=== PATIENT | female | born 1980 | race Caucasian/White ===

== ENCOUNTER → 2017-01-17 | Outpatient (CLI) | payer BC ==
[~2017-01-17] MED LIST: PREN1TAB29
[2017-01-17 11:37] LABS: URINE APPEARANCE CLEAR (CLEAR); URINE BILIRUBIN NEG (NEG); URINE COLOR YELLOW; URINE NITRITE NEG (NEG); URINE SPECIFIC GRAVITY 1.017 (1.000-1.030); UROBILINOGEN NEG (NEG)
[2017-01-17 11:42] LABS: MANUAL MICROSCOPIC REQUIRED? NO; REVIEW REQ? NO
== END | disposition home or self-care (01) ==
LOC: C.LABSPEC 11:05
PROVIDERS: ATTEND Obstetrics & Gynecology
DX: O09.521 Supervision of elderly multigravida, first trimester (principal); Z3A.00 Weeks of gestation of pregnancy not specified

== ENCOUNTER → 2017-01-26 | Outpatient (CLI) | payer BC ==
[2017-01-26 10:31] LABS: BASO % 0.2 %; BASO ABS # 0.02 K/uL (0-0.2); COMPLETE YES; EOS % 0.5 %; HEMATOCRIT 38.5 % (37-47); IG% 0.2 %; LYMPH % 20.7 %; MEAN CELL VOLUME 89.1 fL (80-100); MEAN CORPUSCULAR HEMOGLOBIN 30.8 pg (25-34); MEAN CORPUSCULAR HGB CONC 34.5 g/dl (32-36); MEAN PLATELET VOLUME 9.2 fL (7.4-10.4); MONO % 6.5 %; NEUT % 71.9 %; PLATELET COUNT 288 K/uL (130-400); RED BLOOD COUNT 4.32 M/uL (4.2-5.4); WHITE BLOOD COUNT 9.19 K/uL (4.8-10.8)
[2017-01-30 00:44] LABS: CHLAMYDIA TRACH RNA*** NOT DETECTED (NOT DETECTED); GC (NEIS GONORRHOEAE)RNA** NOT DETECTED (NOT DETECTED)
== END | disposition home or self-care (01) ==
LOC: C.LAB1850 09:08
PROVIDERS: ATTEND Obstetrics & Gynecology
DX: O09.521 Supervision of elderly multigravida, first trimester (principal); Z3A.00 Weeks of gestation of pregnancy not specified

== ENCOUNTER → 2017-01-26 | Outpatient (CLI) | payer BC | END | disposition home or self-care (01) | LOC: C.PAPS 11:26 | PROVIDERS: ATTEND Obstetrics & Gynecology | DX: Z34.90 Encounter for supervision of normal pregnancy, unspecified, unspecified trimester (principal); R87.612 Low grade squamous intraepithelial lesion on cytologic smear of cervix (LGSIL); Z11.51 Encounter for screening for human papillomavirus (HPV); Z3A.00 Weeks of gestation of pregnancy not specified ==

== ENCOUNTER → 2017-03-20 | Outpatient (CLI) | payer BC ==
[2017-03-20 10:43] LABS: GTGD 50 Grams
[2017-03-21 15:22] LABS: AFP CONCENTRATION 45.9 NG/ML; AFP MULTIPLE OF MEDIAN 1.07; AFPTS GESTATIONAL AGE 17.6 WEEKS; AFPTS INSULIN DEP DIABETIC? NO; AFPTS MATERNAL WT 136 LBS; ALPHA-FETOPROTEIN RACE CAUCASIAN=W; CIGARETTE SMOKER? NOT PROVIDED; EDD DETERMINED BY ULTRASOUND; HISTORY OF NTD NO; REPEAT SAMPLE? NO
== END | disposition home or self-care (01) ==
LOC: C.LAB1850 09:09
PROVIDERS: ATTEND Obstetrics & Gynecology
DX: O09.522 Supervision of elderly multigravida, second trimester (principal); Z3A.00 Weeks of gestation of pregnancy not specified

== ENCOUNTER → 2017-06-04 | Outpatient (CLI) | payer OTHER ==
[2017-06-04 12:04] LABS: HEMATOCRIT 34.6 % (37-47); HEMOGLOBIN 11.7 g/dL (12.0-16.0)
== END | disposition home or self-care (01) ==
LOC: C.LAB1850 10:12
PROVIDERS: ATTEND Obstetrics & Gynecology
DX: O09.523 Supervision of elderly multigravida, third trimester (principal); Z3A.00 Weeks of gestation of pregnancy not specified

== ENCOUNTER → 2017-07-26 | Outpatient (CLI) | payer OTHER | END | disposition home or self-care (01) | LOC: C.LABSPEC 13:30 | PROVIDERS: ATTEND Obstetrics & Gynecology | DX: O09.523 Supervision of elderly multigravida, third trimester (principal) ==

== ENCOUNTER 2017-08-17 11:38 | Inpatient (IN) | payer OTHER ==
[~2017-08-17] VITALS: Ht 162.6 cm; Wt 69.1 kg
[2017-08-17] MEDS ORDERED: LACTATED RINGER'S 1000ML 1,000 ML IV PRN (12:08)
[2017-08-17] MEDS ORDERED: LACTATED RINGER'S 1000ML 1,000 ML IV SCH ×2 (12:30→18:06)
[2017-08-17 12:43] LABS: HEMOGLOBIN 12.8 g/dL (12.0-16.0); MEAN CORPUSCULAR HEMOGLOBIN 32.3 pg (25-34); MEAN CORPUSCULAR HGB CONC 33.7 g/dl (32-36); MEAN PLATELET VOLUME 10.6 fL (7.4-10.4); PLATELET COUNT 231 K/uL (130-400); RED CELL DISTRIBUTION WIDTH CV 13.6 % (11.5-14.5); RED CELL DISTRIBUTION WIDTH SD 47.6 fL (36.4-46.3); WHITE BLOOD COUNT 13.09 K/uL (4.8-10.8)
[2017-08-17 14:18] VITALS: Ht 162.6 cm; Wt 69.1 kg
[2017-08-17] MEDS ORDERED: EpHEDrine SULFATE INJ 50 MG/ML AMP ONE (16:54)
[2017-08-17] MEDS ORDERED: BUPIVACAINE 0.25% 30 ML VIAL ONE (16:54)
[2017-08-17] MEDS ORDERED: FENTANYL 2MCG/ML ROPIV 1.25MG/ML 100ML BAG EPI ONE (16:55)
[2017-08-17] MEDS ORDERED: FENTANYL CITRATE INJ 50 MCG/1 ML 2 ML VIAL ONE (16:55)
[2017-08-17] MEDS ORDERED: LACTATED RINGER'S 1000ML 500 ML IV PRN (17:37)
[2017-08-17] MEDS ORDERED: NALOXONE HCL INJ 1 MG in SODIUM CHLORIDE 0.9% 1000ML 1,000 ML IV PRN (17:37)
[2017-08-17] MEDS ORDERED: ONDANSETRON INJ 2 MG/ML 2 ML VIAL IV PRN (17:45)
[2017-08-17] MEDS ORDERED: DiphenhydrAMINE HCL 50 MG/ML VIAL IV PRN (17:45)
[2017-08-17] MEDS ORDERED: NALOXONE HCL INJ 0.4 MG/1 ML VIAL/CARP IV PRN (17:45)
[2017-08-17] MEDS ORDERED: EpHEDrine SULFATE INJ 50 MG/ML AMP IV PRN (17:45)
[2017-08-17] MEDS ORDERED: OXYTOCIN 30 UNITS/500ML NSS IV ONE (17:45)
[2017-08-17] MEDS ORDERED: FENTANYL 2MCG/ML ROPIV 1.25MG/ML 100ML BAG EPI PRN (17:45)
[2017-08-17] MEDS ORDERED: SUPERCREAM 0.870 % 15GM JAR EXT PRN (18:15)
[2017-08-17] MEDS ORDERED: BENZOCAINE 20% AER SPR 82.5 GM CAN EXT PRN (18:15)
[2017-08-17] MEDS ORDERED: ACETAMINOPHEN 325 MG TAB PO PRN (18:15)
[2017-08-17] MEDS ORDERED: HYDROCORTISONE ACETATE 25 MG SUPP PR PRN (18:15)
[2017-08-17] MEDS ORDERED: LANOLIN OINT EXT PRN (18:15)
[2017-08-17] MEDS ORDERED: OXYTOCIN 30 UNITS/500ML NSS IV PRN (18:15)
[2017-08-17] MEDS ORDERED: DIPHTHERIA/TETANUS/PERTUSSIS 0.5 ML SYR/VIAL IM. ONE (18:15)
--- NOTE | 2017-08-17 18:44 | Anesthesiology Progress Note ---
Anesthesia Post Op Note Date & Time Aug 17, 2017 at 18:44 Vital Signs Pain Intensity: 10.0 Notes Mental Status: alert / awake / arousable, participated in evaluation Pt Amnestic to Procedure: Yes Nausea / Vomiting: adequately controlled Pain: adequately controlled Airway Patency, RR, SpO2: stable & adequate BP & HR: stable & adequate Hydration State: stable & adequate Neuraxial Anesthesia: was administered, sensory block is resolving Anesthetic Complications: no major complications apparent
[2017-08-17] MEDS: DOCUSATE SODIUM 100 MG CAP PO SCH (20:00)
--- NOTE | 2017-08-17 20:03 | DELIVERY SUMMARY ---
DATE OF OPERATION: 08/17/2017 PREOPERATIVE DIAGNOSES: 1. Sanchez intrauterine at 39 and 1. 2. Group B strep negative. 3. Spontaneous rupture of membranes and spontaneous onset of labor. POSTOPERATIVE DIAGNOSES: 1. Sanchez intrauterine at 39 and 1. 2. Group B strep negative. 3. Spontaneous rupture of membranes and spontaneous onset of labor. PROCEDURE: Spontaneous vaginal delivery and repair of second-degree laceration. SURGEON: Keren Day MD FILTER BED PLACER: None. ESTIMATED BLOOD LOSS: 300 mL COMPLICATIONS: None. FINDINGS: Placenta spontaneous and intact with a 3-vessel cord. DISPOSITION: Stable in labor and delivery. DESCRIPTION OF PROCEDURE: Yeny Owusu is a 37-year-old, -0-0-1, who presented at 39 and 1/7th week gestation with spontaneous rupture of membranes occurring at home. She was noted to be group B negative and arrived through the plan hoping for natural childbirth. She was therefore ambulated for several hours and was noted to be making change forebag was ultimately ruptured for additional clear fluid, not long after the forebag was ruptured, the patient became significantly uncomfortable and epidural was provided and shortly after the epidural was provided, the patient began to feeling urge to push. She was confirmed to be completely dilated by the nurse and I was then called to the room. We prepped and positioned the patient for delivery and she was then coached through pushing, which she did very well. She then delivered the head of her infant in the HAROLDO position. A single nuchal cord was reduced at the perineum. The patient then delivered the shoulders then remainder of the with no difficulty whatsoever. Viable male was placed on the maternal abdomen per the patient's wishes the cord was not cut until it began to lev. The cord was then doubly clamped and cut by the father of the baby. The placenta delivered spontaneously and was intact with a 3-vessel cord. The perineum was noted to have a second-degree laceration interestingly the patient had a third-degree with her prior delivery and the laceration at this delivery was completely hemostatic, which leads me to believe this was essentially a separation of the preexisting scar tissue. The edges of the second degree were all white and fibrotic and essentially free of active bleeding. These edges were reapproximated in the usual manner for repairing a second degree laceration using Vicryl suture in a running locked pattern with a crown suture to rebuild the perineal body. At the completion of delivery, the fundus was firm, lochia was minimal and mother and infant were both in good condition having tolerated their delivery well. I attest to the content of the Intraoperative Record and any orders documented therein. Any exception s are noted below.
[2017-08-17 22:30] VITALS: BP 134/75; PULSE 62; TEMP 36.7; O2SAT 98
[2017-08-17] MEDS: IBUPROFEN 600 MG TAB PO PRN (22:53)
[2017-08-18 03:30] VITALS: BP 119/74; PULSE 65; TEMP 36.7; O2SAT 96
[2017-08-18] MEDS: IBUPROFEN 600 MG TAB PO PRN ×4 (03:43→16:38)
--- NOTE | 2017-08-18 05:59 | Discharge Instructions ---
Discharge Instructions Date of Service Aug 18, 2017. Admission Reason for Admission: R/O Rupture Of Membranes Discharge Discharge Diagnosis / Problem: vaginal delivery Discharge Goals Goal(s): Routine recovery after delivery Medications Continue Dispensed Medications: supercream, dermaplast, tucks, lansinoh Activity Recommendations Activity Limitations: per Instructions/Follow-up section . Instructions / Follow-Up Instructions / Follow-Up ACTIVITY RECOMMENDATIONS: * Gradual return to full activity over the next 2-3 weeks. * No lifting - nothing heavier than baby over the next 2-3 weeks. * Do not engage in vigorous exercise, sexual activity or sports until cleared by your physician. * Do not drive or operate any motorized equipment until cleared by your physician. * You may shower/bathe daily. MEDICATIONS: For discomfort or pain, you may use Acetaminophen (Tylenol), Ibuprofen (Advil), or Naproxen (Aleve) following the package directions. For constipation you may use Colace following the package directions. BREAST CARE: If you are not breast feeding: * Wear a supportive bra 24 hours a day for one to two weeks. * Avoid stimulating your breasts and nipples as much as possible during the first few weeks after delivery. * When taking a shower, have the warm water hit your back, not breasts. * When your breasts feel full, apply ice packs. Usually three to four times a day helps ease the discomfort. * Take a mild pain medication (Tylenol / Motrin) when you are uncomfortable. If breast feeding: * Use breast milk to lubricate nipples. Lansinoh cream may be used for sore nipples. You do not need to remove cream prior to breast feeding. If using a different brand of cream, check the label for directions regarding removal of cream prior to nursing. * Wear a supportive bra. * If having problems with breasts or breast feeding, call a nurse consultant or your health care provider. EPISIOTOMY CARE: After delivery, if you have an episiotomy (stitches), the following steps will ease discomfort and aid healing. * For the first 24 hours after delivery, place ice packs next to your episiotomy to help reduce swelling. * After the first 24 hour-period, sitz baths, either portable or in the tub, are suggested. A shower with a shower arm sprayed over the episiotomy may be comforting. * Keri care should be done after each voiding and bowel movement. Squirt warm water from a plastic bottle over the perineum (region of the body between the anus and urinary opening) and pat dry. * Use Dermoplast to ease discomfort. Shake container. [place] directly over the episiotomy. Place a Tucks on a clean sanitary pad next to your episiotomy. SPECIAL CARE INSTRUCTIONS: When you are discharged from the hospital, it is important for you to follow the instructions listed below: * During the first week at home, you should be able to care for yourself and your baby. In addition, the usual light household activities are encouraged. * Limit your activities to the way you feel. Do not try to clean the house or move furniture. Be sensible. * If you actively engage in sports and have done so up until the time of your delivery, you may resume these activities as soon as you feel able. This may take up to one month or even longer. Use good judgment. * Continue to take your vitamins for at least six weeks after the of your baby. * Your diet need not be limited unless you were on a special diet before your delivery. Breast-feeding mothers need around 2500 calories per day and at least 64-80 ounces of fluid per day (8 to 10 glasses). * You should eat foods from the four major food groups. Crash diets or fad diets are to be avoided. Eating lean meats, fresh fruits and vegetables, low-fat dairy products, high fiber foods and a regular exercise program, will help you get back to your pre- weight without putting your health at risk. * Constipation is sometimes a problem after delivery. Take a mild laxative as needed. If breast feeding, Milk of Magnesia is acceptable to use. You may use a suppository or Fleets enema if no episiotomy. * A daily shower or tub bath is suggested. Be sure to thoroughly and gently dry the perineum. * A bloody vaginal discharge will usually continue until around four weeks post . A small amount of bleeding may continue for as long as six weeks. Vaginal discharge changes from the bright red bleeding after delivery to pink then brownish and finally yellowish-pink before becoming white and disappearing. * Bleeding may increase with activity. Your first period may come in 4-8 weeks. If you are breast feeding, your period may be delayed even longer. * [place] (sex) can begin whenever both you and your partner feel comfortable and do not have any form of genital infection. It is recommended that you wait at least six weeks for internal and external healing to occur. If you have questions, please talk to your health care practitioner. A condom should be used to prevent infection and . * Foreplay, gentle intercourse and lubrication is very important the first several times to prevent pain. A water-based lubricant such as K-Y jelly or Astroglide may be used. * If you have RH negative blood and your baby is RH positive, you will receive RHOGAM by injection prior to discharge. The nurse will give you a card to keep with you that has the date and place that you received RHOGAM after delivery. * During your care, you had a Rubella screen done to check for the presence of rubella antibodies in your blood. If your test was negative, you will receive a Rubella vaccine prior to discharge. This vaccine may cause a fever, soreness at the injection site and flu-like symptoms. If these symptoms persist, notify your health care practitioner. is not advised for one month after a Rubella vaccine. * Verbalizes understanding of car seat law as reviewed with patient nursing. * Car Seat hand-out given and reviewed with patient by nursing. * Shaken baby information reviewed with patient by nursing. Call you doctor if: * Heavy bleeding (saturating several pads an hour) or passing clots the size of your fist. * A fever >101 degrees F (38.3 degrees C) on two occasions four hours apart and /or chills. * Unusual pain in the pelvic or vaginal areas. * "Baby Blues" lasting longer than two weeks. If you have any questions or concerns, call your health care practitioner at . FOLLOW UP VISIT: * Please call the office at to schedule a 6 week examination. It is important you keep this appointment. It is important for you to make arrangements for either yearly or twice yearly check-ups thereafter. Current Hospital Diet Patient's current hospital diet: Regular OB Diet Discharge Diet Recommended Diet: Regular Diet, Regular OB Diet Pending Studies Studies pending at discharge: no Medical Emergencies . Who to Call and When: Medical Emergencies: If at any time you feel your situation is an emergency, please call 911 immediately. . Non-Emergent Contact Non-Emergency issues call your: Primary Care Provider, [employer] . . "Provider Documentation" section prepared by Jeff Norman. .
--- NOTE | 2017-08-18 06:02 | Progress Note ---
Subjective Aug 18, 2017. Subjective conversation w/ patient, physical exam, chart review, lab review Ambulation: ambulating normally Voiding: no voiding problems Passing Gas: Yes Diet Tolerance: Regular Diet Lochia: Small Feeding Type: Breast Feeding Review of Systems Constitutional: No fever, No chills Respiratory: No cough, No shortness of breath Cardiac: No chest pain, No palpitations Abdomen: No pain, No nausea, No vomiting Female : No dysuria Objective Vital Signs Date Time Temp Pulse Resp B/P (MAP) Pulse Ox O2 Delivery O2 Flow Rate FiO2 08/18/17 03:30 36.7 65 16 119/74 (89) 96 Room Air 08/17/17 22:30 36.7 62 16 134/75 (94) 98 Room Air 08/17/17 22:30 98 Room Air Physical Exam General Appearance: WELL-APPEARING, WD/WN, NO APPARENT DISTRESS Respiratory/Chest: lungs clear, no respiratory distress Cardiovascular: regular rate, rhythm, no murmur Abdomen: non tender, soft Fundus: Firm Extremities: non-tender, normal inspection Laboratory Results Last 24 Hours Test 08/17/17 12:29 08/18/17 04:44 White Blood Count 13.09 K/uL Red Blood Count 3.96 M/uL Hemoglobin 12.8 g/dL Hematocrit 38.0 % Mean Corpuscular Volume 96.0 fL Mean Corpuscular Hemoglobin 32.3 pg Mean Corpuscular Hemoglobin Concent 33.7 g/dl RDW Standard Deviation 47.6 fL RDW Coefficient of Variation 13.6 % Platelet Count 231 K/uL Mean Platelet Volume 10.6 fL Assessment and Plan Post- Day#: 1 Continue Routine Care: 37, F, , A+/RI/GBS-, PPD1. Vitals reviewed, WNL. Hgb 12.8 on admission, pending this am. No signs or sx of anemia. Was able to ambulate this am. Patient is doing well clinically. 1. Recovery from vaginal delivery--ambulate, support BF, monitor lochia, control pain Resident Physician Supervision Note: I interviewed and examined the patient. Discussed with Dr. Norman and agree with findings and plan as documented in the note. Any exceptions or clarifications are listed here: [None] Documented By: Keren Day
[2017-08-18 06:31] LABS: HEMATOCRIT 35.1 % (37-47)
[2017-08-18 08:00] VITALS: BP 109/73; PULSE 55; TEMP 36.6
[2017-08-18] MEDS: PRENATAL VITAMIN TAB PO SCH (08:03)
[2017-08-18] MEDS: DOCUSATE SODIUM 100 MG CAP PO SCH ×2 (08:04→19:44)
[2017-08-18] MEDS: OXYCODONE/ACETAMINOPHEN 5-325 TAB PO PRN ×4 (08:24→20:37)
[2017-08-18 12:35] VITALS: BP 117/79; PULSE 67; TEMP 36.7
[2017-08-18 16:15] VITALS: BP 116/75; PULSE 65; TEMP 36.9
[2017-08-18 19:30] VITALS: BP 99/63; PULSE 66; TEMP 36.9; O2SAT 95
[2017-08-18 23:50] VITALS: BP 112/67; PULSE 66; TEMP 36.9; O2SAT 97
[2017-08-19] MEDS: OXYCODONE/ACETAMINOPHEN 5-325 TAB PO PRN (02:11)
[2017-08-19] MEDS: IBUPROFEN 600 MG TAB PO PRN (02:12)
[2017-08-19 08:25] VITALS: BP 113/67; PULSE 76; TEMP 36.6
[2017-08-19] MEDS: DOCUSATE SODIUM 100 MG CAP PO SCH (08:27)
[2017-08-19] MEDS: PRENATAL VITAMIN TAB PO SCH (08:27)
--- NOTE | 2017-08-19 09:06 | Progress Note ---
Subjective Aug 19, 2017. Subjective conversation w/ patient, physical exam Ambulation: ambulating normally Voiding: no voiding problems Diet Tolerance: Regular Diet Lochia: Small Feeding Type: Breast Feeding Pain: engorgement Objective Vital Signs Date Time Temp Pulse Resp B/P (MAP) Pulse Ox O2 Delivery O2 Flow Rate FiO2 08/18/17 23:50 36.9 66 16 112/67 (82) 97 Room Air 08/18/17 23:50 97 Room Air 08/18/17 19:30 36.9 66 16 99/63 (75) 95 Room Air 08/18/17 19:30 95 Room Air 08/18/17 16:15 36.9 65 18 116/75 (89) Room Air 08/18/17 16:15 Room Air 08/18/17 12:35 36.7 67 16 117/79 (92) Physical Exam General Appearance: WELL-APPEARING, WD/WN, NO APPARENT DISTRESS Respiratory/Chest: lungs clear Cardiovascular: regular rate, rhythm Abdomen: non tender, soft Fundus: Firm, Relation to Umbilicus (2 down) Extremities: non-tender Assessment and Plan Post- Day#: 2 Continue Routine Care: stable, ready for discharge. f/u 6wks pp check. reviewed engorgement. instructions reviewed.
[2017-08-19 11:15] VITALS: BP_DIAS 67; PULSE 76; TEMP 36.6
== END 2017-08-19 11:17 | disposition home or self-care (01) | DRG 775 ==
LOC: C.OPB 11:38 → C.LD 11:39 → C.OPB 12:11 → C.LD 12:11 → C.OBG 22:30
PROVIDERS: ADMIT Obstetrics & Gynecology; ATTEND Obstetrics & Gynecology
PROC: 0KQM0ZZ Repair Perineum Muscle, Open Approach (ICD-10-PCS; principal; 2017-08-17)
PROC: 10E0XZZ Delivery of Products of Conception, External Approach (ICD-10-PCS; principal; 2017-08-17)
DX: O69.81X0 Labor and delivery complicated by cord around neck, without compression, not applicable or unspecified (principal); O70.1 Second degree perineal laceration during delivery; O28.2 Abnormal cytological finding on antenatal screening of mother; O09.523 Supervision of elderly multigravida, third trimester; Z3A.39 39 weeks gestation of pregnancy; Z37.0 Single live birth

== ENCOUNTER 2021-09-01 15:16 | Observation (INO) ==
[2021-09-01 16:28] LABS: Basophils # (auto) 0.04 K/uL (0-0.2); Basophils % (auto) 0.4 %; Eosinophils # (auto) 0.07 K/uL (0-0.5); Eosinophils % (auto) 0.7 %; Hematocrit (blood only) 41.5 % (37-47); Hemoglobin 13.9 g/dL (12.0-16.0); Immature Granulocytes # (auto) 0.01 K/uL (0.00-0.02); Immature Granulocytes % (auto) 0.1 %; Lymphocytes # (auto) 2.61 K/uL (1.2-3.4); Lymphocytes % (auto) 25.5 %; Mean Corpuscular Hemoglobin 31.2 pg (25-34); Mean Corpuscular Hgb Conc 33.5 g/dL (32-36); Mean Platelet Volume 9.9 fL (7.4-10.4); Monocytes # (auto) 0.54 K/uL (0.11-0.59); Monocytes % (auto) 5.3 %; Neutrophils # (auto) 6.97 K/uL (1.4-6.5); Platelet Count 320 K/uL (130-400); RDW Coefficient of Variation 12.6 % (11.5-14.5); RDW Standard Deviation 43.6 fL (36.4-46.3); Red Blood Count 4.46 M/uL (4.2-5.4); White Blood Count 10.24 K/uL (4.8-10.8)
[2021-09-01 16:58] LABS: Appearance Urine Clear (Clear); Bilirubin Urine Negative (Negative); Blood Urine Negative (Negative); Color Urine Yellow; Glucose Urine UA Negative (Negative); Ketones Urine Negative (Negative); Leukocyte Esterase Urine Negative (Negative); Nitrite Urine Negative (Negative); Protein Urine Negative (Negative); Urobilinogen Urine Negative (Negative)
--- NOTE | 2021-09-01 17:02 | Emergency Department Note ---
Impression & Plan Acute appendicitis, Abdominal pain ED Provider Note NAME: SPARKLE TADEO AGE: 41 SEX: F : 1980 ARRIVES VIA: Walk-In INFORMANT: Patient ED PROVIDER(S): Stephen De Santiago DO CHIEF COMPLAINT: abdominal pain HPI: Patient is a 41-year-old female who presents ER for right lower quadrant abdominal pain which started midweek last week. She notes its a 3-4 out of 10 with palpation. At rest pain is a 1-2. She denies any nausea or vomiting. No dysuria urgency or frequency. No vaginal bleeding or vaginal discharge. She was seen by her PCP and had a CT ordered and eventually got it done yesterday. It was initially read as negative and she received a phone call that was normal. Following this was reread later and they read it as a tip appendicitis. She was instructed to come back to the ER. ROS: See above HPI for pertinent positives & negatives. A total of 10 systems reviewed and were otherwise negative. PAST MEDICAL HISTORY:See Below PAST SURGICAL HISTORY:See Below FAMILY HISTORY:See Below SOCIAL HISTORY:See Below HOME MEDICATIONS:See Below ALLERGIES:See Below VITALS:See Below PHYSICAL EXAMINATION: GENERAL: Sitting up in bed, alert, well appearing, well nourished, no distress, non-toxic EYE EXAM: normal conjunctiva. PERRL and EOM's grossly intact. OROPHARYNX: no exudate, no erythema, lips, buccal mucosa, and tongue normal and mucous membranes are moist NECK: supple, no nuchal rigidity, no adenopathy, non-tender LUNGS: Clear to auscultation. Normal chest wall mechanics HEART: no murmurs, S1 normal and S2 normal ABDOMEN: abdomen soft, TTP in RLQ, normo-active bowel sounds, no masses, no rebound or guarding. UPPER EXTREMITIES: upper extremities are grossly normal. LOWER EXTREMITIES: No pitting edema. NEURO EXAM: Normal sensorium, cranial nerves II-XII grossly intact, normal speech, no gross weakness of arms, no gross weakness of legs. MEDICAL DECISION MAKING: Patient is a 41-year-old female who presents ER for right lower quadrant abdominal pain with a CT that shows appendicitis per her report. CT was read yesterday as negative. Called Dr. Zafar he notes he reread the images last night and thought it was appendicitis and patient was called. Patient was given 2 g of Mefoxin. She was updated bedside. Discussed with Dr. Dickens who evaluate the patient at bedside and patient was taken to the OR for acute appendicitis. IV was established blood work was obtained. Labs show no significant leukocytosis or anemia. BMP with slightly elevated chloride. LFTs bilirubin lipase was unremarkable. UA was clean. negative. COVID- negative. Triage Nursing notes reviewed. Limited review of prior medical records performed Vital Signs: reviewed and remarkable for no significant abnormalities Differential diagnosis: Differential diagnoses includes but is not limited to gastritis, peptic ulcer disease, GERD, gallbladder disease, pancreatitis, small bowel obstruction, acute coronary syndrome, pericarditis, ischemic bowel, irritable bowel disease, irritable bowel syndrome, appendicitis, diverticulitis, malignancy, hernia, urin karan tract infection, torsion, /ectopic (if female), perforation, trauma, infectious. ER treatment provided: See below Diagnostics interpreted by me: ECG: none Cardiac Monitoring: An order was placed for continuous cardiac monitoring. The monitor shows a rate of 90 with sinus rhythm. Laboratory studies: As stated above and show below. Imaging studies: CT abdomen pelvis was reviewed from yesterday. Consultation(s): Discussed with Dr. Zafar as stated above Discussed with Dr. Dickens who evaluate the patient took him to the OR. Procedures: none Critical Care: None Past Med/Surg History Medical History (Updated 09/01/21 @ 19:26 by Stephen De Santiago DO) Acute appendicitis Social History Smoking Status: Never smoker Preferred Language: Egyptian Feels Safe at Home: Yes Allergies Allergies Allergy/AdvReac Type Severity Reaction Status Date / Time acetaminophen Allergy Mild GI SYMPTOMS Verified 09/01/21 18:15 hydrocodone Allergy Mild GI SYMPTOMS Verified 09/01/21 18:15 Home Meds Home Medications Medication Instructions Recorded Confirmed Magnesium 80mg Tablet 80 mg PO BID 09/01/21 09/01/21 ascorbic acid (vitamin C) 500 mg 500 mg PO QAM 09/01/21 09/01/21 tablet (Vitamin C) sumatriptan succinate 100 mg tablet 100 mg PO DAILY PRN 09/01/21 09/01/21 vitamin B complex 1 tab PO QAM 09/01/21 09/01/21 Results & Data (ED) Vital Signs Vital Signs - 24 hr 09/01/21 15:37 09/01/21 17:17 09/01/21 19:09 Temperature 36.7 C 37.8 C H Temperature Source Temporal Artery Scan Temporal Artery Scan Pulse Rate 89 Pulse Rate [Finger] 92 H Pulse Rhythm Regular Pulse Strength Normal Respiratory Rate 18 18 Respiratory Effort / Characteristics Non-Labored Spontaneous Non-Labored Spontaneous Respiratory Depth Normal Normal Normal Respiratory Pattern Agonal Regular Blood Pressure 158/100 H Blood Pressure [Left Arm] 132/101 H Blood Pressure Mean 119 Blood Pressure Mean [Left Arm] 111 Blood Pressure Position Sitting Blood Pressure Position [Left Arm] Sitting Pulse Oximetry 100 98 100 Oxygen Delivery Method Room Air Room Air Room Air Sepsis Recent Fever Within 48 Hours No Sepsis New/Unexplained Change in Mental Status No Sepsis Action Taken by Nursing No Action Required Laboratory Data Result diagrams: 09/01/21 15:59 09/01/21 17:55 Lab Results 09/01/21 09/01/21 09/01/21 Range/Units 15:59 15:59 15:59 WBC 10.24 (4.8-10.8) K/uL RBC 4.46 (4.2-5.4) M/uL Hgb 13.9 (12.0-16.0) g/dL Hct 41.5 (37-47) % MCV 93.0 (80-100) fL MCH 31.2 (25-34) pg MCHC 33.5 (32-36) g/dL RDW Std Deviation 43.6 (36.4-46.3) fL RDW Coeff of Masha 12.6 (11.5-14.5) % Plt Count 320 (130-400) K/uL MPV 9.9 (7.4-10.4) fL Immature Gran % (Auto) 0.1 % Neut % (Auto) 68.0 % Lymph % (Auto) 25.5 % Blair % (Auto) 5.3 % Eos % (Auto) 0.7 % Baso % (Auto) 0.4 % Neut # (Auto) 6.97 H (1.4-6.5) K/uL Lymph # (Auto) 2.61 (1.2-3.4) K/uL Blair # (Auto) 0.54 (0.11-0.59) K/uL Eos # (Auto) 0.07 (0-0.5) K/uL Baso # (Auto) 0.04 (0-0.2) K/uL Immature Gran # (Auto) 0.01 (0.00-0.02) K/uL Sodium 140 (136-145) mmol/L Potassium TNP Chloride 108 H (98-107) mmol/L Carbon Dioxide 25 (21-32) mmol/L Anion Gap 7 (3-11) BUN 13 (6-23) mg/dl Creatinine 0.91 (0.6-1.2) mg/dl Est Cr Clr Drug Dosing 65.6 ml/min Est GFR ( Amer) 90.2 ml/min Est GFR (Non-Af Amer) 77.8 ml/min BUN/Creatinine Ratio 14.3 (10-20) Glucose 73 (70-99(Fasting)) mg/dl Calcium 9.7 (8.5-10.1) mg/dl Total Bilirubin 0.5 (0.2-1.0) mg/dl AST TNP ALT 13 (7-52) U/L Alkaline Phosphatase 33 L (34-104) U/L Total Protein 7.7 (6.0-8.3) gm/dl Albumin 5.1 H (3.4-5.0) gm/dl Globulin 2.6 (2.5-4.0) gm/dl Albumin/Globulin Ratio 2.0 (0.9-2) Lipase 69 (11-82) U/L Urine Color Yellow Urine Appearance Clear (Clear) Urine pH 5.0 (4.5-7.5) Ur Specific [place] 1.020 (1.000-1.030) Urine Protein Negative (Negative) Urine Glucose (UA) Negative (Negative) Urine Ketones Negative (Negative) Urine Blood Negative (Negative) Urine Nitrite Negative (Negative) Urine Bilirubin Negative (Negative) Urine Urobilinogen Negative (Negative) Ur Leukocyte Esterase Negative (Negative) POC Ur Test (NEG) SARS-CoV-2, RNA, NAAT (NEGATIVE) 09/01/21 09/01/21 09/01/21 Range/Units 15:59 17:55 17:57 WBC (4.8-10.8) K/uL RBC (4.2-5.4) M/uL Hgb (12.0-16.0) g/dL Hct (37-47) % MCV (80-100) fL MCH (25-34) pg MCHC (32-36) g/dL RDW Std Deviation (36.4-46.3) fL RDW Coeff of Masha (11.5-14.5) % Plt Count (130-400) K/uL MPV (7.4-10.4) fL Immature Gran % (Auto) % Neut % (Auto) % Lymph % (Auto) % Blair % (Auto) % Eos % (Auto) % Baso % (Auto) % Neut # (Auto) (1.4-6.5) K/uL Lymph # (Auto) (1.2-3.4) K/uL Blair # (Auto) (0.11-0.59) K/uL Eos # (Auto) (0-0.5) K/uL Baso # (Auto) (0-0.2) K/uL Immature Gran # (Auto) (0.00-0.02) K/uL Sodium (136-145) mmol/L Potassium 3.7 Chloride (98-107) mmol/L Carbon Dioxide (21-32) mmol/L Anion Gap (3-11) BUN (6-23) mg/dl Creatinine (0.6-1.2) mg/dl Est Cr Clr Drug Dosing ml/min Est GFR ( Amer) ml/min Est GFR (Non-Af Amer) ml/min BUN/Creatinine Ratio (10-20) Glucose (70-99(Fasting)) mg/dl Calcium (8.5-10.1) mg/dl Total Bilirubin (0.2-1.0) mg/dl AST 16 ALT (7-52) U/L Alkaline Phosphatase (34-104) U/L Total Protein (6.0-8.3) gm/dl Albumin (3.4-5.0) gm/dl Globulin (2.5-4.0) gm/dl Albumin/Globulin Ratio (0.9-2) Lipase (11-82) U/L Urine Color Urine Appearance (Clear) Urine pH (4.5-7.5) Ur Specific [place] (1.000-1.030) Urine Protein (Negative) Urine Glucose (UA) (Negative) Urine Ketones (Negative) Urine Blood (Negative) Urine Nitrite (Negative) Urine Bilirubin (Negative) Urine Urobilinogen (Negative) Ur Leukocyte Esterase (Negative) POC Ur Test NEG (NEG) SARS-CoV-2, RNA, NAAT NEGATIVE (NEGATIVE) Administered Medications Discontinued Medications Cefoxitin Sodium (Mefoxin) 2,000 mg in 60 mls @ 100 mls/hr IV NOW STA Stop: 09/01/21 19:01 Last Admin: 09/01/21 18:57 Dose: 100 mls/hr Documented by: [id number] Discharge Plan Visit Data Chief Complaint: Abdominal Pain Stated Complaint: APPENDICITIS CONFIRMED BY CT SCAN/REF BY ED Provider: Stephen De Santiago Discharge Problem: Acute appendicitis, Abdominal pain Discharge Instructions Interventions: ED Discharge Assessment Last Done: 09/01/21 18:55 Forms Stand Alone Forms: [employer] [facility] [employer] Prescriptions Prescriptions: No Action sumatriptan succinate 100 mg tablet 100 mg PO DAILY PRN (Reason: Migraine Headache) RF: 0 ascorbic acid (vitamin C) [Vitamin C] 500 mg Tablet 500 mg PO QAM RF: 0 vitamin B complex Tablet 1 tab PO QAM RF: 0 Magnesium 80mg Tablet 80 mg PO BID RF: 0 Referrals Referrals: Alix Ford MD [Primary Care Provider] -
[2021-09-01 17:28] LABS: Alanine Aminotransferase 13 U/L (7-52); Albumin Level 5.1 gm/dl (3.4-5.0); Alkaline Phosphatase 33 U/L (34-104); Anion Gap 7 (3-11); BUN Creatinine Ratio 14.3 (10-20); Bilirubin,Total 0.5 mg/dl (0.2-1.0); Blood Urea Nitrogen 13 mg/dl (6-23); Calcium 9.7 mg/dl (8.5-10.1); Carbon Dioxide 25 mmol/L (21-32); Chloride 108 mmol/L (98-107); Creatinine Clr Calc Pharmacy 65.6 ml/min; Est GFR (African American) 90.2 ml/min; Est GFR (Non-African American) 77.8 ml/min; Globulin 2.6 gm/dl (2.5-4.0); Glucose 73 mg/dl (70-99(Fasting)); Lipase 69 U/L (11-82); Sodium 140 mmol/L (136-145); Total Protein 7.7 gm/dl (6.0-8.3)
[2021-09-01] MEDS ORDERED: cefOXitin 2,000 MG/60 ML BAG IV STA (18:26)
[2021-09-01 18:35] LABS: Potassium 3.7 mmol/L (3.5-5.1)
[2021-09-01] MEDS ORDERED: ONDANSETRON INJ 2 MG/ML 2 ML VIAL IV PRN ×2 (18:43→21:48)
[2021-09-01] MEDS ORDERED: ePHEDrine sulfate 50 MG/ML AMP IV PRN (18:43)
[2021-09-01] MEDS ORDERED: PROMETHAZINE HCL 6.25 MG in SODIUM CHLORIDE 0.9% 50 ML IV PRN (18:43)
[2021-09-01] MEDS ORDERED: ATROPINE SULFATE 0.1 MG/ML 10ML SYR IV PRN (18:43)
--- NOTE | 2021-09-01 18:43 | Anesthesiology Consultation ---
Date of Service September 01, 2021 Assessment & Plan (1) Encounter for pre-operative examination: Chart Review Chart Review: Acceptable Risk for Surgery and Patient NOT seen in Pre Admission Testing Consults Requested none History Surgery Operation Date: 09/01/21 19:45 Proposed Procedures p Laparoscopic Appendectomy(Not Applicable) - Denilson Dickens MD Height/Weight Height: 5 ft 5 in Weight: 51.6 kg Allergies Allergy/AdvReac Type Severity Reaction Status Date / Time acetaminophen Allergy Mild GI SYMPTOMS Verified 09/01/21 18:15 hydrocodone Allergy Mild GI SYMPTOMS Verified 09/01/21 18:15 Medications Home Medications Medication Instructions Recorded Confirmed Last Taken Magnesium 80mg Tablet 80 mg PO BID 09/01/21 09/01/21 08/31/21 ascorbic acid (vitamin C) 500 mg 500 mg PO QAM 09/01/21 09/01/21 08/31/21 tablet (Vitamin C) sumatriptan succinate 100 mg tablet 100 mg PO DAILY PRN 09/01/21 09/01/21 Unknown vitamin B complex 1 tab PO QAM 09/01/21 09/01/21 08/31/21 Social History Smoking Status: Never smoker Physical Exam Vital Signs Last Vital Signs Temp 98.1 F 09/01/21 15:37 Pulse 89 09/01/21 15:37 Resp 18 09/01/21 15:37 BP 158/100 H 09/01/21 15:37 Pulse Ox 98 09/01/21 17:17 Testing Laboratory Results 09/01/21 15:59 09/01/21 17:55 Urine Color Yellow 09/01/21 15:59 Urine Appearance Clear (Clear) 09/01/21 15:59 Urine pH 5.0 (4.5-7.5) 09/01/21 15:59 Ur Specific [place] 1.020 (1.000-1.030) 09/01/21 15:59 Urine Protein Negative (Negative) 09/01/21 15:59 Urine Glucose (UA) Negative (Negative) 09/01/21 15:59 Urine Ketones Negative (Negative) 09/01/21 15:59 Urine Nitrite Negative (Negative) 09/01/21 15:59 Ur Leukocyte Esterase Negative (Negative) 09/01/21 15:59 09/01/21 17:57 POC Ur Test NEG
--- NOTE | 2021-09-01 18:44 | History & Physical Report ---
Date of Service September 01, 2021 Assessment & Plan (1) Acute appendicitis: Plan: 41-year-old woman presents with right lower quadrant pain for [address] scan demonstrates acute appendicitis of the appendiceal tip. I discussed the risk benefits of a laparoscopic appendectomy with her. All her questions were answered, she is agreeable to proceed. Consent has been obtained. We will take her to the operating room at the earliest convenience. History of Present Illness Primary Care Provider: Alix Ford MD 41-year-old woman presents with right lower quadrant pain for the last week. States it came on suddenly a week ago with chills, nausea, and then somewhat subsided. She has had episodes of this in the past. The pain has continued and slightly worsened. The pain is directly in the right lower quadrant. She last ate at lunchtime today. She has not had much of an appetite. White blood cell count is 10. CT scan demonstrates acute appendicitis of the appendiceal tip. Allergies Allergy/AdvReac Type Severity Reaction Status Date / Time acetaminophen Allergy Mild GI SYMPTOMS Verified 09/01/21 18:15 hydrocodone Allergy Mild GI SYMPTOMS Verified 09/01/21 18:15 Home Medications Medication Instructions Recorded Confirmed Type Magnesium 80mg Tablet 80 mg PO BID 09/01/21 09/01/21 History ascorbic acid (vitamin C) 500 mg 500 mg PO QAM 09/01/21 09/01/21 History tablet (Vitamin C) sumatriptan succinate 100 mg tablet 100 mg PO DAILY PRN 09/01/21 09/01/21 History vitamin B complex 1 tab PO QAM 09/01/21 09/01/21 History Past Med/Surg History Medical History (Updated 09/01/21 @ 18:44 by Denilson Dickens MD) Acute appendicitis Social History Smoking Status: Never smoker Preferred Language: Bengali Feels Safe at Home: Yes Review of Systems Review of Systems: All systems reviewed & are unremarkable except as noted in HPI & below Physical Exam Constitutional: WD/WN, vitals as above Eyes: PERRL, conjunctivae normal, anicteric sclerae Neck: trachea midline, no thyromegaly Respiratory: normal respiratory effort, lungs clear to auscultation Cardiovascular: RRR, no murmur, no edema Gastrointestinal (Abdomen): Inspection/Auscultation: abdomen normal to inspection; abdomen not distended Percussion/Palpation: + abdomen tender (Right lower quadrant, McBurney's point) and abdomen soft; no guarding and abdomen not rigid Musculoskeletal: Extremities: no cyanosis and no clubbing Skin: no rashes, warm and dry Psychiatric: A+Ox3, euthymic affect Results & Data Results & Data ([facility]) Vital Signs (Past 12 Hours) Vital Signs Temp Pulse Resp BP Pulse Ox 09/01/21 17:17 98 09/01/21 15:37 36.7 C 89 18 158/100 H 100 Laboratory Results 09/01/21 09/01/21 09/01/21 Range/Units 17:57 17:55 15:59 WBC (4.8-10.8) K/uL RBC (4.2-5.4) M/uL Hgb (12.0-16.0) g/dL Hct (37-47) % MCV (80-100) fL MCH (25-34) pg MCHC (32-36) g/dL RDW Std Deviation (36.4-46.3) fL RDW Coeff of Masha (11.5-14.5) % Plt Count (130-400) K/uL MPV (7.4-10.4) fL Immature Gran % (Auto) % Neut % (Auto) % Lymph % (Auto) % Cloud % (Auto) % Eos % (Auto) % Baso % (Auto) % Neut # (Auto) (1.4-6.5) K/uL Lymph # (Auto) (1.2-3.4) K/uL Cloud # (Auto) (0.11-0.59) K/uL Eos # (Auto) (0-0.5) K/uL Baso # (Auto) (0-0.2) K/uL Immature Gran # (Auto) (0.00-0.02) K/uL Sodium (136-145) mmol/L Potassium 3.7 Chloride (98-107) mmol/L Carbon Dioxide (21-32) mmol/L Anion Gap (3-11) BUN (6-23) mg/dl Creatinine (0.6-1.2) mg/dl Est Cr Clr Drug Dosing ml/min Est GFR ( Amer) ml/min Est GFR (Non-Af Amer) ml/min BUN/Creatinine Ratio (10-20) Glucose (70-99(Fasting)) mg/dl Calcium (8.5-10.1) mg/dl Total Bilirubin (0.2-1.0) mg/dl AST 16 ALT (7-52) U/L Alkaline Phosphatase (34-104) U/L Total Protein (6.0-8.3) gm/dl Albumin (3.4-5.0) gm/dl Globulin (2.5-4.0) gm/dl Albumin/Globulin Ratio (0.9-2) Lipase (11-82) U/L Urine Color Urine Appearance (Clear) Urine pH (4.5-7.5) Ur Specific [place] (1.000-1.030) Urine Protein (Negative) Urine Glucose (UA) (Negative) Urine Ketones (Negative) Urine Blood (Negative) Urine Nitrite (Negative) Urine Bilirubin (Negative) Urine Urobilinogen (Negative) Ur Leukocyte Esterase (Negative) POC Ur Test NEG (NEG) SARS-CoV-2, RNA, NAAT NEGATIVE (NEGATIVE) 09/01/21 09/01/21 09/01/21 Range/Units 15:59 15:59 15:59 WBC 10.24 (4.8-10.8) K/uL RBC 4.46 (4.2-5.4) M/uL Hgb 13.9 (12.0-16.0) g/dL Hct 41.5 (37-47) % MCV 93.0 (80-100) fL MCH 31.2 (25-34) pg MCHC 33.5 (32-36) g/dL RDW Std Deviation 43.6 (36.4-46.3) fL RDW Coeff of Masha 12.6 (11.5-14.5) % Plt Count 320 (130-400) K/uL MPV 9.9 (7.4-10.4) fL Immature Gran % (Auto) 0.1 % Neut % (Auto) 68.0 % Lymph % (Auto) 25.5 % Cloud % (Auto) 5.3 % Eos % (Auto) 0.7 % Baso % (Auto) 0.4 % Neut # (Auto) 6.97 H (1.4-6.5) K/uL Lymph # (Auto) 2.61 (1.2-3.4) K/uL Cloud # (Auto) 0.54 (0.11-0.59) K/uL Eos # (Auto) 0.07 (0-0.5) K/uL Baso # (Auto) 0.04 (0-0.2) K/uL Immature Gran # (Auto) 0.01 (0.00-0.02) K/uL Sodium 140 (136-145) mmol/L Potassium TNP Chloride 108 H (98-107) mmol/L Carbon Dioxide 25 (21-32) mmol/L Anion Gap 7 (3-11) BUN 13 (6-23) mg/dl Creatinine 0.91 (0.6-1.2) mg/dl Est Cr Clr Drug Dosing 65.6 ml/min Est GFR ( Amer) 90.2 ml/min Est GFR (Non-Af Amer) 77.8 ml/min BUN/Creatinine Ratio 14.3 (10-20) Glucose 73 (70-99(Fasting)) mg/dl Calcium 9.7 (8.5-10.1) mg/dl Total Bilirubin 0.5 (0.2-1.0) mg/dl AST TNP ALT 13 (7-52) U/L Alkaline Phosphatase 33 L (34-104) U/L Total Protein 7.7 (6.0-8.3) gm/dl Albumin 5.1 H (3.4-5.0) gm/dl Globulin 2.6 (2.5-4.0) gm/dl Albumin/Globulin Ratio 2.0 (0.9-2) Lipase 69 (11-82) U/L Urine Color Yellow Urine Appearance Clear (Clear) Urine pH 5.0 (4.5-7.5) Ur Specific [place] 1.020 (1.000-1.030) Urine Protein Negative (Negative) Urine Glucose (UA) Negative (Negative) Urine Ketones Negative (Negative) Urine Blood Negative (Negative) Urine Nitrite Negative (Negative) Urine Bilirubin Negative (Negative) Urine Urobilinogen Negative (Negative) Ur Leukocyte Esterase Negative (Negative) POC Ur Test (NEG) SARS-CoV-2, RNA, NAAT (NEGATIVE)
[2021-09-01] MEDS ORDERED: MIDAZOLAM HCL 1 MG/ML 2ML VIAL ONE (18:52)
[2021-09-01] MEDS ORDERED: fentaNYL citrate 100 MCG/2 ML VIAL ONE ×2 (18:52→20:29)
[2021-09-01] MEDS ORDERED: BUPIVACAINE 0.5 % 5 MG/1 ML MPF 30ML VIAL ONE (18:58)
[2021-09-01] MEDS ORDERED: EPINEPHrine INJ 1 MG/ML AMP ONE (18:58)
[2021-09-01] MEDS ORDERED: GLYCOPYRROLATE 0.2 MG/ML VIAL ONE (20:05)
[2021-09-01] MEDS ORDERED: DEXAMETHASONE SOD INJ 4 MG/ML VIAL ONE (20:05)
[2021-09-01] MEDS ORDERED: PROPOFOL IV EMULSION 10 MG/ML 20 ML VIAL IV ONE (20:05)
[2021-09-01] MEDS ORDERED: KETOROLAC 30 MG/ML VIAL ONE (20:05)
[2021-09-01] MEDS ORDERED: SUCCINYLCHOLINE 100MG/5ML SYR IV ONE (20:05)
[2021-09-01] MEDS ORDERED: NEOSTIGMINE METHYLSULFATE 1 MG/ML 10ML VIAL ONE (20:05)
--- NOTE | 2021-09-01 20:13 | Operative Report ---
Post Operative Report Pre & Post Diagnosis Operation Date: 09/01/21 19:45 Pre-Op Diagnosis: Acute appendicitis Post-Op Diagnosis: Acute appendicitis I identified the patient and participated in the time-out.: Yes Procedure Operation Date: 09/01/21 19:45 Actual Procedures p Laparoscopic Appendectomy(Not Applicable) - Denilson Dickens MD Surgeon Denilson Dickens MD Machine Assistant None Estimated Blood Loss 2 Findings Consistent with Post-Op Diagnosis Acute appendicitis Specimens Appendix Anesthesia Type General Complications No immediate complications Description of Procedure The patient was taken to the operating room, and placed supine on the operating table. A timeout was performed, perioperative antibiotics were administered, SCD boots were placed. After adequate anesthesia and analgesia was obtained, the abdomen was prepped and draped in the normal sterile fashion. A 1 cm incision was made in the supraumbilical region and carried down to the level of the fascia. A trach hook was used to grasp the fascia and elevated and a varies needle was used to enter the abdominal cavity. The abdomen was insufflated to a pressure of 15 mmHg, and a 5 mm trocar was placed in this location. A 5 mm 30 degree laparoscope was placed into the abdominal cavity, and the abdomen was surveyed. The patient was placed in Trendelenburg and slightly to the left. One 5 mm trocar was placed in the right upper quadrant, and one 12 mm trocar was placed in the left lower quadrant under direct visualization. The right colon was identified and traced down to the cecum. The appendix was identified and elevated anteriorly and medially. A window was created at the base of the appendix with a [place] dissector. The Endo ARVIND stapler was used to transect the appendix at its base through noninflamed tissue, and subsequently the mesoappendix. The appendix was placed in an Endo Catch bag, and removed via the left lower quadrant port site. Attention was turned to hemostasis, which was excellent. The abdomen was copiously irrigated and suctioned free, and again hemostasis was found to be excellent. All trochars removed under direct visualization. The abdomen was desufflated. The fascia in the 12 mm port site was closed with a 0 Vicryl suture. The skin was closed with a running 4-0 Monocryl subcuticular stitch. Dermabond was applied. The patient tolerated the procedure without complication, and was transferred in stable condition to the PACU. All instrument, needle, and sponge counts were correct at the end of the case. I attest to the content of the Intraoperative Record and any orders documented therein. Any exceptions are noted below.
[2021-09-01] MEDS ORDERED: ONDANSETRON INJ 2 MG/ML 2 ML VIAL ONE (20:29)
[2021-09-01] MEDS: fentaNYL citrate 100 MCG/2 ML VIAL IV PRN ×3 (20:30→20:40)
--- NOTE | 2021-09-01 20:44 | Anesthesiology Progress Note ---
Date of Service September 01, 2021 Anesthesia Post Procedure Vital Signs Vital Signs: Temp Pulse Pulse Pulse Resp BP BP 09/01/21 20:40 65 12 09/01/21 20:30 74 12 09/01/21 20:20 97.5 F L 87 20 09/01/21 19:09 100.0 F H 92 H 18 132/101 H 09/01/21 17:17 09/01/21 15:37 98.1 F 89 18 158/100 H BP Pulse Ox 09/01/21 20:40 122/73 100 09/01/21 20:30 124/75 100 09/01/21 20:20 117/80 100 09/01/21 19:09 100 09/01/21 17:17 98 09/01/21 15:37 100 Pain Intensity Right Abdomen: Pain Intensity: 6 Transfer of Care Handoff Completed per policy Notes Mental Status: alert / awake / arousable and participated in evaluation Patient Amnestic to Procedure: Yes Nausea / Vomiting: adequately controlled Pain: adequately controlled Airway Patency, RR, SpO2: stable & adequate BP & HR: stable & adequate Hydration State: stable & adequate Anesthetic Complications: no major complications apparent and Pt Satisfied with anesthetic care
[2021-09-01] MEDS ORDERED: LACTATED RINGER'S 1,000 ML IV SCH (21:48)
[2021-09-01] MEDS ORDERED: KETOROLAC 30 MG/ML VIAL IV PRN (21:48)
[2021-09-01] MEDS ORDERED: oxyCODONE HCL IR 5 MG TAB (IMMEDIATE RELEASE) PO PRN (21:48)
[2021-09-01] MEDS ORDERED: PROMETHAZINE HCL 12.5 MG in SODIUM CHLORIDE 0.9% 50 ML IV PRN (21:48)
[2021-09-01] MEDS ORDERED: diphenhydrAMINE Capsule 25 MG CAP PO PRN (21:48)
[2021-09-01] MEDS ORDERED: MoRPHine SULFATE 2 MG/ML CARP IV PRN (21:48)
[2021-09-02] MEDS ORDERED: ENOXAPARIN INJ 40 MG/0.4 ML SYR SQ SCH (07:00)
--- NOTE | 2021-09-02 08:42 | Discharge Summary ---
Date of Service September 02, 2021 Admission HPI Per Admitting Provider 41-year-old woman presents with right lower quadrant pain for the last week. States it came on suddenly a week ago with chills, nausea, and then somewhat subsided. She has had episodes of this in the past. The pain has continued and slightly worsened. The pain is directly in the right lower quadrant. She last ate at lunchtime today. She has not had much of an appetite. White blood cell count is 10. CT scan demonstrates acute appendicitis of the appendiceal tip. Principal Diagnosis Acute appendicitis Discharge Data Allergies Allergy/AdvReac Type Severity Reaction Status Date / Time acetaminophen Allergy Mild GI SYMPTOMS Verified 09/01/21 18:15 hydrocodone Allergy Mild GI SYMPTOMS Verified 09/01/21 18:15 Consultations 09/01/21 17:14 Consult General Surgery Stat Procedures Performed Operation Date: 09/01/21 19:45 Actual Procedures p Laparoscopic Appendectomy(Not Applicable) - Denilson Dickens MD Hospital Course (1) Acute appendicitis: 44-year-old woman presents the emergency department with acute appendicitis. She is taken to the operating room, the details of which are dictated in a separate operative note. Postoperatively, she was transferred in stable condition to the PACU and subsequently to the floor. DVT prophylaxis with SCD boots and Lovenox subcutaneous. Incentive spirometry and early ambulation were encouraged for pulmonary toilet. Her diet was slowly advanced to regular. She is maintained on pain control with IV and p.o. medications. By the date of discharge, she was tolerating regular diet, not requiring any IV pain medications, and was discharged home in stable condition. She will follow- up in clinic in 2 weeks. Total Time Total Time Spent Total Time Spent (In Minutes): 30 minutes Discharge Plan Discharge Items Patient Disposition: Home - Self-Care Reason For Visit: ACUTE APPENDICITIS Discharge Diagnosis: Acute and chronic appendicitis of tip of appendix Activity: Per Instructions section Non-emergency contact: Surgeon Call non-emergency contact if: your pain is not controlled, your pain is worsening, you have a fever, your temperature is above 101, your wound has increased redness, your wound has increased drainage and your wound pain has increased Follow-up/Referrals: Alix Ford MD [Primary Care Provider] - Diet: Regular Addtl Attending Provider Instructions: Post-Surgical ~Discharge Instructions Activity Recommendations: - lifting limitation: (20 pounds for 2 weeks), - exercise/sex/sports limit: (nonstrenuous for 2 weeks), - driving or machine use limit: (none for 1 week, until pain free and no longer taking narcotic pain medication), - Shower/bathe limit: (may shower beginning tomorrow) Diet: - Resume previous diet SPECIAL CARE INSTRUCTIONS: - May shower in 24 hours. Let water run over area and pat dry. - Surgical glue will fall off on its own - Call the surgeon's office with any questions or concerns - - (ex. temperature higher than 101 degrees F, excessive bleeding or pain). MEDICATIONS: - Resume previous medications unless instructed otherwise by your surgeon. - May take extra strength Tylenol and Ibuprofen as needed for pain -650 mg Tylenol every 6 hours as needed - Ibuprofen 600 mg every 6 hours as needed (take with food and limit continuous use for no more than 3 days) - Percocet 1 every 4 hours, as needed for moderate to severe pain - Recommend daily stool softener (Colace) while taking narcotic pain medication to prevent constipation or straining. Drink plenty of water daily. FOLLOW UP VISIT: - If not already scheduled, please call the office to schedule a two week follow-up appointment. Office number Pending Studies at Discharge: Yes (Appendix pathology, will be reviewed at follow-up visit) Stand-Alone Forms: My [facility], Smoking Cessation Medications and DC Order Prescriptions: New oxycodone 5 mg tablet 5 mg PO Q4H PRN (Reason: pain) Qty: 10 RF: 0 Continued sumatriptan succinate 100 mg tablet 100 mg PO DAILY PRN (Reason: Migraine Headache) RF: 0 ascorbic acid (vitamin C) [Vitamin C] 500 mg Tablet 500 mg PO QAM RF: 0 vitamin B complex Tablet 1 tab PO QAM RF: 0 Magnesium 80mg Tablet 80 mg PO BID RF: 0 Discharge Orders: Discharge Order (Routine); Ordered 09/02/21 Ordered By: Denilson Dickens Admission Data Admit Date/Time: 09/01/21 20:17 Attending Provider: Denilson Dickens Admit Provider: Denilson Dickens Primary Care Provider: Alix Ford Other Providers: Denilson Dickens
--- NOTE | 2021-09-02 08:44 | Surgery Progress Note ---
Date of Service September 02, 2021 Assessment & Plan (1) Acute appendicitis: Plan: Postoperative day 1 status post lap appendectomy. She is doing quite well. We will plan to discharge her to home around lunchtime today. She will follow-up in clinic in 2 weeks. Admission and Anticipated Discharge Date Admission Date: September 01, 2021 Subjective Postop day 1 status post lap appendectomy. She is not complaining of significant pain. She denies nausea or vomiting. She denies fevers or chills. Physical Exam Constitutional: WD/WN, vitals as above Gastrointestinal (Abdomen): Inspection/Auscultation: abdomen normal to inspection and + abdominal surgical incision (Incisions C/D/I, Dermabond; no erythema/discharge); abdomen not distended Percussion/Palpation: + abdomen tender (Incisional) and abdomen soft; no guarding and abdomen not rigid Skin: no rashes, warm and dry Psychiatric: A+Ox3, euthymic affect Results & Data ([facility]) Vital Signs (Past 12 Hours) Vital Signs Temp Pulse Pulse Resp BP Pulse Ox 09/02/21 06:59 36.5 C 56 L 16 112/75 96 09/02/21 04:36 36.7 C 61 16 98/61 L 97 09/01/21 23:59 36.6 C 60 16 135/75 97 09/01/21 23:17 36.7 C 61 16 120/80 99 09/01/21 22:58 36.6 C 71 16 120/75 98 09/01/21 22:25 36.7 C 73 16 124/80 98 09/01/21 21:58 36.8 C 61 16 124/83 99 09/01/21 21:57 36.7 C 61 14 117/76 97 09/01/21 21:35 36.8 C 61 16 126/81 99 09/01/21 21:20 36.8 C 61 16 124/83 99 09/01/21 21:10 63 14 127/76 98 09/01/21 21:00 60 12 119/81 100 09/01/21 20:50 36.8 C 58 L 12 122/80 100 (1) Acute appendicitis Acute appendicitis type: unspecified acute appendicitis type Qualified Code(s): K35.80 - Unspecified acute appendicitis
== END 2021-09-02 13:17 | disposition home or self-care (01) ==
LOC: ED 15:16 → OR 18:55 → 3W 18:55
DX: Z88.5 Allergy status to narcotic agent; K35.80 Unspecified acute appendicitis; Z88.6 Allergy status to analgesic agent